=== PATIENT | male | born 1970 | race Caucasian/White ===

== ENCOUNTER 2023-03-09 14:58 | Emergency (ER) | payer SELFPAY ==
[~2023-03-09] VITALS: Ht 180.3 cm; Wt 72.7 kg
[2023-03-09 15:03] VITALS: BP 101/76; PULSE 126; RESP 16; TEMP 98; O2SAT 94
[2023-03-09 15:47] LABS: BASOPHILS # (AUTO) 0.1 X10'3 (0-0.2); BASOPHILS % (AUTO) 1.4 % (0-1); EOSINOPHILS # (AUTO) 0.1 X10'3 (0-0.9); HEMATOCRIT 53.1 % (42.0-52.0); HEMOGLOBIN 17.7 g/dl (14.0-17.9); LYMPHOCYTES # (AUTO) 2.5 X10'3 (1.1-4.8); LYMPHOCYTES % (AUTO) 28.3 % (21-51); MEAN CORPUSCULAR HGB CONC 33.3 g/dL (33.0-36.5); MEAN CORPUSCULAR VOLUME 102.3 FL (78-98); MEAN PLATELET VOLUME 8.4 FL (7.4-10.4); MONOCYTES # (AUTO) 0.5 X10'3 (0-0.9); MONOCYTES % (AUTO) 5.1 % (2-12); NEUTROPHILS # (AUTO) 5.8 X10'3 (1.8-7.7); NEUTROPHILS % (AUTO) 64.2 % (42-75); PLATELET COUNT 364 X10'3 (140-440); RED BLOOD COUNT 5.19 X10'6 (4.70-6.10); RED CELL DISTRIBUTION WIDTH 15.8 % (11.5-14.5)
[2023-03-09 15:53] LABS: ALANINE AMINOTRANSFERASE 59 U/L (12-78); ALBUMIN 3.6 G/DL (3.4-5.0); ALBUMIN/GLOBULIN RATIO 0.9 (1.1-1.5); ALKALINE PHOSPHATASE 128 IU/L (46-116); ANION GAP 10 (8-16); ASPARTATE AMINO TRANSFERASE 61 U/L (10-37); BILIRUBIN,TOTAL 0.6 MG/DL (0.1-1.0); BLOOD UREA NITROGEN 5 MG/DL (7-18); BUN/CREATININE RATIO 7.2 (10.0-20.0); CALCIUM 8.3 MG/DL (8.5-10.1); CHLORIDE 102 MMOL/L (99-107); CREATININE 0.69 MG/DL (0.60-1.10); GLUCOSE 120 MG/DL (70-104); POTASSIUM 3.9 MMOL/L (3.5-5.1); SODIUM 143 MMOL/L (135-145); TOTAL PROTEIN 7.6 G/DL (6.4-8.2); eCRCL 124 ML/MIN; eGFR > 90 ML/MIN
[2023-03-09 16:00] LABS: ETHANOL 254 MG/DL (<10); PRO BRAIN NATRIURETIC PEPTIDE < 30 PG/ML (0-125)
== END 2023-03-09 20:45 | disposition left against medical advice (07) ==
LOC: ER 14:59
DX: S01.111A Laceration without foreign body of right eyelid and periocular area, initial encounter (principal); Z53.21 Procedure and treatment not carried out due to patient leaving prior to being seen by health care provider; W19.XXXA Unspecified fall, initial encounter; Y93.89 Activity, other specified; Y92.89 Other specified places as the place of occurrence of the external cause; Y99.8 Other external cause status
CPT/HCPCS: 36415; 71045; 80053; 80320; 83880; 84484; 85025; 93005; 99281

== ENCOUNTER 2023-06-28 12:16 | Emergency (ER) | payer OTHER ==
[~2023-06-28] VITALS: Ht 180.3 cm; Wt 73.7 kg
[2023-06-28] MEDS ORDERED: normal saline 1000ML IV soln IVB ONE (12:30)
[2023-06-28 13:07] LABS: BASOPHILS % (AUTO) 0.3 % (0-1); EOSINOPHILS % (AUTO) 0.1 % (0-6); HEMATOCRIT 47.4 % (42.0-52.0); HEMOGLOBIN 16.1 g/dl (14.0-17.9); LYMPHOCYTES # (AUTO) 0.9 X10'3 (1.1-4.8); LYMPHOCYTES % (AUTO) 8.3 % (21-51); MEAN CORPUSCULAR HEMOGLOBIN 33.7 PG (27.0-31.0); MEAN CORPUSCULAR HGB CONC 33.9 g/dL (33.0-36.5); MEAN CORPUSCULAR VOLUME 99.4 FL (78-98); MEAN PLATELET VOLUME 8.2 FL (7.4-10.4); MONOCYTES # (AUTO) 0.6 X10'3 (0-0.9); MONOCYTES % (AUTO) 5.4 % (2-12); NEUTROPHILS # (AUTO) 8.9 X10'3 (1.8-7.7); NEUTROPHILS % (AUTO) 85.9 % (42-75); PLATELET COUNT 261 X10'3 (140-440); RED BLOOD COUNT 4.77 X10'6 (4.70-6.10); RED CELL DISTRIBUTION WIDTH 14.7 % (11.5-14.5); WHITE BLOOD COUNT 10.3 X10'3 (4.5-11.0)
[2023-06-28 13:23] LABS: ALANINE AMINOTRANSFERASE 21 U/L (12-78); ALBUMIN 3.5 G/DL (3.4-5.0); ALBUMIN/GLOBULIN RATIO 0.9 (1.1-1.5); ALKALINE PHOSPHATASE 100 IU/L (46-116); ANION GAP 10 (8-16); ASPARTATE AMINO TRANSFERASE 22 U/L (10-37); BILIRUBIN,TOTAL 1.4 MG/DL (0.1-1.0); BLOOD UREA NITROGEN 12 MG/DL (7-18); BUN/CREATININE RATIO 17.4 (10.0-20.0); CHLORIDE 99 MMOL/L (99-107); CREATININE 0.69 MG/DL (0.60-1.10); GLUCOSE 118 MG/DL (70-104); POTASSIUM 4.1 MMOL/L (3.5-5.1); SODIUM 134 MMOL/L (135-145); TOTAL CARBON DIOXIDE 25.2 MMOL/L (24-32); TOTAL PROTEIN 7.3 G/DL (6.4-8.2); eCRCL 126 ML/MIN; eGFR > 90 ML/MIN
[2023-06-28 13:34] LABS: ETHANOL < 10 MG/DL (<10); THYROID STIMULATING HORMONE 2.91 ulU/ml (0.34-4.50)
[2023-06-28 13:44] LABS: ACETAMINOPHEN < 2.0 UG/ML (10-30)
[2023-06-28 14:18] LABS: URINE AMPHETAMINE SCREEN POSITIVE (Neg); URINE BARBITUATE SCREEN NEGATIVE (Neg); URINE BENZODIAZEPINES SCREEN NEGATIVE (Neg); URINE CANNABINOID SCREEN POSITIVE (Neg); URINE COCAINE SCREEN NEGATIVE (Neg); URINE METHADONE SCREEN NEGATIVE (Neg); URINE OPIATE SCREEN NEGATIVE (Neg); URINE PHENCYCLIDINE SCREEN NEGATIVE (Neg)
[2023-06-28] MEDS ORDERED: ibuprofen tablet 400 MG TABLET PO ONE (15:40)
[2023-06-28] MEDS ORDERED: NO HOME MEDS (19:29)
[2023-06-28] MEDS ORDERED: phenobarbital sod 130mg/ml inj. IV ONE (20:55)
[2023-06-28] MEDS ORDERED: LORazepam 1 MG tablet PO ONE (21:15)
[2023-06-29 07:33] LABS: BILIRUBIN,URINE NEGATIVE (Neg); CLARITY,URINE CLOUDY (Clear); COLOR,URINE YELLOW (Yellow); GLUCOSE, URINE NEGATIVE (Neg); KETONES,URINE 15 mg/dl (Neg); LEUKOCYTE ESTERASE ,URINE SMALL (Neg); NITRITES, URINE POSITIVE (Neg); OCCULT BLOOD,URINE TRACE-INTACT (Neg); PH,URINE 8.5 (4.8-8.0); PROTEIN,URINE 30 mg/dl (Neg); UROBILINOGEN,URINE 0.2 E.U/dL (0.2-1.0)
[2023-06-29 07:39] LABS: UA COLLECTION TYPE CLN CATCH MIDSTREAM
[2023-06-29 07:42] LABS: SQUAMOUS EPITHELIAL CELL,UR MODERATE /LPF (FEW)
[2023-06-29 07:43] LABS: WBC,URINE 50-100 /HPF (0-4)
[2023-06-29 07:44] LABS: BACTERIA,URINE 4+ /HPF (Neg)
[2023-06-29 07:47] LABS: WBC CLUMPS,URINE FEW /HPF (NEGATIVE)
[2023-06-29 13:28] VITALS: BP 119/84; PULSE 86; RESP 16; TEMP 97.3; O2SAT 95
== END 2023-06-29 13:05 | disposition still patient (30) ==
LOC: ER 12:16
DX: R45.851 Suicidal ideations (principal); Z20.822 Contact with and (suspected) exposure to COVID-19; F32.A Depression, unspecified; F12.90 Cannabis use, unspecified, uncomplicated
CPT/HCPCS: 36415; 80053; 80305; 80320; 80329; 81001; 84443; 85025; 87502; 87503; 87811; 93005; 99285; J7030; 99283

== ENCOUNTER 2023-07-21 00:13 | Inpatient (IN) | payer OTHER ==
[~2023-07-21] VITALS: Ht 180.3 cm; Wt 65.0 kg
[~2023-07-21 00:13] MED LIST: NO HOME MEDS
[2023-07-21] MEDS: levetiracetam inj 1,000 MG in normal saline 100ml IV soln 90 ML IV ONE (00:30)
[2023-07-21 00:51] LABS: BASOPHILS # (AUTO) 0.1 X10'3 (0-0.2); BASOPHILS % (AUTO) 0.8 % (0-1); EOSINOPHILS % (AUTO) 0.1 % (0-6); HEMATOCRIT 46.3 % (42.0-52.0); HEMOGLOBIN 15.9 g/dl (14.0-17.9); LYMPHOCYTES # (AUTO) 0.9 X10'3 (1.1-4.8); LYMPHOCYTES % (AUTO) 8.8 % (21-51); MEAN CORPUSCULAR HEMOGLOBIN 33.5 PG (27.0-31.0); MEAN CORPUSCULAR HGB CONC 34.3 g/dL (33.0-36.5); MEAN CORPUSCULAR VOLUME 97.7 FL (78-98); MEAN PLATELET VOLUME 7.1 FL (7.4-10.4); MONOCYTES # (AUTO) 0.8 X10'3 (0-0.9); MONOCYTES % (AUTO) 7.9 % (2-12); NEUTROPHILS % (AUTO) 82.4 % (42-75); PLATELET COUNT 231 X10'3 (140-440); RED BLOOD COUNT 4.74 X10'6 (4.70-6.10); WHITE BLOOD COUNT 9.7 X10'3 (4.5-11.0)
[2023-07-21 01:08] LABS: ALBUMIN 3.6 G/DL (3.4-5.0); ANION GAP 9 (8-16); BLOOD UREA NITROGEN 13 MG/DL (7-18); BUN/CREATININE RATIO 16.7 (10.0-20.0); CALCIUM 8.4 MG/DL (8.5-10.1); CHLORIDE 99 MMOL/L (99-107); CREATININE 0.78 MG/DL (0.60-1.10); ETHANOL < 10 MG/DL (<10); GLUCOSE 100 MG/DL (70-104); POTASSIUM 4.1 MMOL/L (3.5-5.1); SODIUM 135 MMOL/L (135-145); TOTAL CARBON DIOXIDE 27.3 MMOL/L (24-32); eCRCL 98 ML/MIN; eGFR > 90 ML/MIN
[2023-07-21] MEDS: levetiracetam inj 1,000 MG in normal saline 100ml IV soln 100 ML IV ONE (01:14)
[2023-07-21] MEDS ORDERED: dextrose 50%-water 50ml dispensing syringe IV PRN (02:25)
[2023-07-21] MEDS ORDERED: LORazepam 2 mg/ml vial IV PRN (02:25)
[2023-07-21] MEDS ORDERED: haloperidol lactate 5mg/ml inj IM PRN (02:25)
[2023-07-21] MEDS ORDERED: haloperidol 5mg tablet PO PRN (02:25)
[2023-07-21] MEDS ORDERED: LORazepam 1 MG tablet PO PRN (02:25)
[2023-07-21 03:08] LABS: BILIRUBIN,URINE NEGATIVE (Neg); CLARITY,URINE SLIGHTLY CLOUDY (Clear); COLOR,URINE YELLOW (Yellow); GLUCOSE, URINE NEGATIVE (Neg); KETONES,URINE 40 mg/dl (Neg); LEUKOCYTE ESTERASE ,URINE TRACE (Neg); NITRITES, URINE POSITIVE (Neg); OCCULT BLOOD,URINE SMALL (Neg); PROTEIN,URINE TRACE mg/dl (Neg); UROBILINOGEN,URINE 0.2 E.U/dL (0.2-1.0)
[2023-07-21 03:18] LABS: UA COLLECTION TYPE URINAL
[2023-07-21 03:23] LABS: BACTERIA,URINE 4+ /HPF (Neg); MUCUS STRANDS NONE SEEN /LPF (Neg); SQUAMOUS EPITHELIAL CELL,UR MODERATE /LPF (FEW)
[2023-07-21 03:25] LABS: WBC CLUMPS,URINE FEW /HPF (NEGATIVE)
[2023-07-21 03:27] LABS: URINE AMPHETAMINE SCREEN POSITIVE (Neg); URINE BARBITUATE SCREEN NEGATIVE (Neg); URINE BENZODIAZEPINES SCREEN POSITIVE (Neg); URINE CANNABINOID SCREEN POSITIVE (Neg); URINE COCAINE SCREEN NEGATIVE (Neg); URINE METHADONE SCREEN NEGATIVE (Neg); URINE OPIATE SCREEN NEGATIVE (Neg); URINE PHENCYCLIDINE SCREEN NEGATIVE (Neg)
[2023-07-21] MEDS: thiamine 100mg/ml 2ml inj. IV ONE (04:49)
[2023-07-21] MEDS: thiamine 100mg tablet PO SCH (04:49)
[2023-07-21] MEDS: CefTRIAXone/D5W-Rocephin 1gm 50 ML IV ONE (04:50)
[2023-07-21] MEDS ORDERED: mag hydrox/Alum hydrox/simeth 30ml oral suspension PO PRN (05:00)
[2023-07-21] MEDS ORDERED: potassium Cl 40MEQ/1/2NS 520ml 520 ML IV PRN (05:00)
[2023-07-21] MEDS ORDERED: magnesium Cl slow-release 64mg tablet PO PRN (05:00)
[2023-07-21] MEDS ORDERED: acetaminophen 325mg tablet PO PRN (05:00)
[2023-07-21] MEDS ORDERED: potassium Cl 20 mEq SR tablet PO PRN ×2 (05:00)
[2023-07-21] MEDS ORDERED: magnesium hydroxide 30ml (MOM) UD suspension PO PRN (05:00)
[2023-07-21] MEDS ORDERED: magnesium 2GM in 50ml NS 50 ML IV PRN (05:00)
[2023-07-21] MEDS ORDERED: magnesium 4gm in 100ml NS 100 ML IV PRN (05:00)
[2023-07-21] MEDS ORDERED: ondansetron/PF 4mg/2ml inj IV PRN (05:00)
[2023-07-21] MEDS: normal saline 1000ml 1,000 ML IV SCH (05:36)
[2023-07-21] MEDS: K and/or MAG REPLACEMENT MC SCH (08:00)
[2023-07-21] MEDS: docusate sod 100mg capsule PO SCH (08:00)
[2023-07-21] MEDS: thiamine 100mg/ml 2ml inj. IV SCH (08:15)
[2023-07-21] MEDS: CefTRIAXone/D5W-Rocephin 1gm 50 ML IV SCH (08:16)
[2023-07-21] MEDS: folic acid 1mg/0.2ml inj IV SCH (08:16)
[2023-07-21 11:37] LABS: CHOL/HDL RATIO 2.3 (0.00-4.99); CHOLESTEROL 235 MG/DL (0-200); HDL CHOLESTEROL 103 MG/DL (35-60); LDL CHOLESTEROL 107 MG/DL (50-100); MAGNESIUM 1.7 MG/DL (1.5-2.4); THYROID STIMULATING HORMONE 8.29 ulU/ml (0.34-4.50); TRIGLYCERIDES 51 MG/DL (20-135)
[2023-07-21] MEDS ORDERED: LEVO750T68 PO (17:07)
[2023-07-21 19:53] VITALS: BP 132/85; PULSE 80; RESP 16; TEMP 98.4; O2SAT 95
[2023-07-21] MEDS: enoxaparin 40mg/0.4ml syringe SQ SCH (20:00)
[2023-07-25] MEDS ORDERED: folic acid 1mg tablet PO SCH (08:00)
== END 2023-07-21 23:50 | disposition home or self-care (01) | DRG 101 ==
LOC: ER 00:14 → ED HOLD 05:03
PROVIDERS: ADMIT Family Medicine; ATTEND Internal Medicine
DX: G40.409 Other generalized epilepsy and epileptic syndromes, not intractable, without status epilepticus (principal); N30.00 Acute cystitis without hematuria; F10.10 Alcohol abuse, uncomplicated; Z79.899 Other long term (current) drug therapy
CPT/HCPCS: 36415; 70450; 70551; 71045; 80048; 80061; 80305; 80320; 81001; 82140; 83735; 84145; 84443; 84484; 85025; 87077; 87088; 87186; 93005; 99285; G0378; J0696; J1953; J3411; J3490; J7030